=== PATIENT | male | born 2000 | race Two or more races ===

== ENCOUNTER → 2023-05-21 | Outpatient (CLI) | payer OTHER ==
[2023-05-21 16:41] LABS: ALBUMIN 4.3 G/DL (3.2-5.2); ALKALINE PHOSPHATASE 60 U/L (46-116); ALT/SGPT 19 U/L (7.0-40); AST/SGOT 11 U/L (<34); BILIRUBIN,TOTAL 0.5 MG/DL (0.3-1.2); BLOOD UREA NITROGEN 14 MG/DL (9-23); CALCIUM LEVEL 9.7 MG/DL (8.5-10.1); CARBON DIOXIDE LEVEL 30 MMOL/L (20-31); CHLORIDE LEVEL 104 MMOL/L (98-107); CREATININE FOR GFR 1.03 MG/DL (0.70-1.30); GLOMERULAR FILTRATION RATE > 60.0 (>60); GLUCOSE, FASTING 85 MG/DL (60-100); HCG, SERUM QUANTITATIVE < 2.6 MIU/ML; SODIUM LEVEL 141 MMOL/L (136-145); TOTAL PROTEIN 7.7 G/DL (5.7-8.2)
[2023-05-21 16:43] LABS: FOLLICLE STIMULATING HORMONE 3.1 mIU/ML (1.4-18.1); FREE T4 1.07 NG/DL (0.89-1.76); THYROID STIMULATING HORMONE 1.186 uIU/ML (0.55-4.78)
[2023-05-21 16:44] LABS: LUTEINIZING HORMONE 4.1 mIU/ML (1.5-9.3)
== END ==
LOC: M PLALAB 13:50
PROVIDERS: ATTEND Surgery
DX: N62 Hypertrophy of breast (principal)